=== PATIENT | female | born 1970 | race Caucasian/White ===

== ENCOUNTER → 2024-10-09 | Outpatient (CLI) | payer MEDICAID, SELFPAY ==
--- NOTE | 2024-10-09 14:30 | XR_ITS ---
Examination: Screening digital mammography, bilateral Computer aided detection 3-D breast Tomosynthesis, bilateral Date and time of exam: October 09, 2024 1406 hours Compared to mammograms dating to May 20, 2021 Indication: Screening Technique: Nonmagnified MLO, CC views of the breasts to been obtained, reconstructed from 3-D Tomosynthesis images. R2 computer aided detection program utilized for evaluation of suspicious masses and/or abnormal calcifications. 3-D Tomosynthesis images obtained. Findings: Scattered areas of fibroglandular density Benign calcifications. No interval suspicious masses Impression: BI-RADS category II: Benign Findings. Recommend 1 year follow-up mammogram.
== END | disposition home or self-care (01) ==
LOC: CDIM 13:55
PROVIDERS: Referring Provider Physician Assistant; Visit Provider Physician Assistant
DX: Z12.31 Encounter for screening mammogram for malignant neoplasm of breast (principal); R92.323 Mammographic fibroglandular density, bilateral breasts; R92.1 Mammographic calcification found on diagnostic imaging of breast
CPT/HCPCS: 77063; 77067

== ENCOUNTER 2025-02-09 00:34 | Emergency (ER) | payer MEDICAID, SELFPAY ==
[2025-02-09 00:40] VITALS: BP 128/71; PULSE 93; RESP 18; TEMP 36.4; O2SAT 96
[2025-02-09 01:43] VITALS: BP 120/63; PULSE 91; RESP 18; TEMP 36.8; O2SAT 98; BMI 41.1
--- NOTE | 2025-02-09 01:43 | PD.EDALLER ---
ED Allergic Reaction RME/HPI General Stated complaint: ALLERGIC REACTION Time Seen by Provider: 02/09/25 01:43 Arrival date/time: 02/09/25 00:34 Limitations: no limitations RME / HPI RME / HPI narrative: Dr. King's Main ED Evaluation: 54yo female [place]IN from home presents to the ED for a chief complaint of an allergic reaction. Patient states she ate some nachos tonight and has since had difficulty swallowing and feels like I'm going to pass out . She has had similar symptoms when eating sagar cheese in the past. Denies any chest pain, shortness of breath, or any other associated symptoms. NKA. Related Data Home Medications ?Medication ?Instructions ?Recorded ?Confirmed aspirin 81 mg tablet,delayed 81 mg PO QDAY 09/03/19 release (Adult Aspirin Regimen) atorvastatin 10 mg tablet 10 mg PO QHS 09/03/19 oxcarbazepine 300 mg tablet 300 mg PO BID 09/03/19 quetiapine 100 mg tablet (Seroquel) 100 mg PO QDAY 09/03/19 quetiapine 400 mg tablet (Seroquel) 400 mg PO QHS 09/03/19 venlafaxine 37.5 mg 37.5 mg PO QHS 09/03/19 capsule,extended release 24 hr Previous Rx's ?Medication ?Instructions ?Recorded acetaminophen 650 mg 650 mg PO Q8H PRN fever or pain 09/03/19 tablet,extended release #30 tabs ibuprofen 600 mg tablet 600 mg PO Q8H PRN fever or pain 09/03/19 #30 tabs ibuprofen 800 mg tablet 800 mg PO TID PRN pain #30 tabs 02/19/20 diphenhydramine HCl 25 mg capsule 25 mg PO TID PRN allergy symptoms 02/09/25 (Benadryl) 2 days #10 caps epinephrine 0.3 mg/0.3 mL 0.3 ml subcut .As needed #2 ea 02/09/25 injection, auto-injector (EpiPen) famotidine 20 mg tablet 20 mg PO BID 5 days #10 tabs 02/09/25 prednisone 50 mg tablet 50 mg PO QDAY 5 days #5 tabs 02/09/25 Allergies Allergy/AdvReac Type Severity Reaction Status Date / Time No Known Allergies Allergy Verified 02/19/20 12:36 Review of Systems Review of Systems Systems Reviewed: All systems reviewed, normal except as documented Past Medical History Social History SMOKING STATUS: Never smoker ED Exam General Limitations: Present no limitations General appearance: Present alert and in no apparent distress Head Head exam: Present atraumatic Eye Eye exam: Present normal appearance, PERRL and EOMI ENT ENT exam: Present normal exam, normal oropharynx and mucous membranes moist Neck Neck exam: Present normal inspection, full ROM and trachea midline Chest Chest inspection: Present normal inspection and symmetric chest wall rise Respiratory Respiratory exam: Present normal lung sounds bilaterally Cardiovascular Cardiovascular exam: Present regular rate, normal rhythm and normal heart sounds Abdominal Exam Abdominal exam: Present soft and normal bowel sounds Extremities Exam Extremities exam: Present normal inspection and full ROM Back Exam Back exam: Present normal inspection and full ROM Neurological Exam Neurological exam: Present alert, oriented X3 and CN II-XII intact Psychiatric Psychiatric exam: Present normal affect and normal mood Skin Skin exam: Present warm, dry, intact and normal color Course Quality Measures none Orders Category Date Time Status DiphenhydrAMINE INJ [Benadryl Inj] Med 02/09/25 01:44 Discontinued 25 mg IVP X1 ONE Famotidine Inj [Pepcid Inj] Med 02/09/25 01:43 Discontinued 20 mg IVP X1 ONE MethylPREDNISolone.* [SoluMEDROL Inj] Med 02/09/25 01:43 Discontinued 125 mg IVP X1 ONE Vital Signs Vital signs: Vital Signs Temperature 97.6 F 02/09/25 00:40 Pulse Rate 93 02/09/25 00:40 Respiratory Rate 18 02/09/25 00:40 Blood Pressure 128/71 02/09/25 00:40 Pulse Oximetry (%) 96 02/09/25 00:40 Oxygen Delivery Method Nasal Cannula 02/09/25 00:40 Oxygen Flow Rate 6 02/09/25 00:40 Allergic Reaction MDM Narrative MDM Narrative:: Scribe Attestation: 02/09/25 Juanita Spann am scribing for and in the presence of Dr. King. This 54-year-old female presents emergency department with history of high cholesterol, and otherwise not on an NIMESH inhibitor coming in with difficulty swallowing after eating cheese at the [facility] [place]. She states this has happened 1 other time when she has had natural cheese. On physical exam the patient is hemodynamically stable with no airway or hemodynamic compromise. She is 98% on room air. Patient is treated with allergic reaction medications. On reevaluation the patient has resolution of her symptoms. Return precautions given understood the patient needs to follow-up with a primary care so she can get referral to insurance claims analyst if needed. If needed. Patient data External records reviewed:: [facility] previous records (Per chart review, patient has no relevant previous ED visits.) and EMS form Clinical information provided by:: patient Social determinants that could affect healthcare access:: none Patient has the following chronic illnesses:: none How is presenting disease/condition affected by chronic disease/condition?: no chronic disease Evaluation data The following diagnostics were reviewed and interpreted by me:: other (specify) (none) Lab and/or radiology exams considered but not ordered:: none Interpretation Summary: none Medications / Prescriptions Medications or Prescriptions considered but not ordered:: none Medication administrations:: Medication Administration History Discontinued Medications Diphenhydramine HCl (Diphenhydramine Inj 50 Mg/Ml Vial) 25 mg IVP X1 ONE Stop: 02/09/25 01:45 Last Admin: 02/09/25 03:34 Dose: 25 mg Documented By: SE Famotidine (Famotidine Inj 10 Mg/Ml Vial 2 Ml) 20 mg IVP X1 ONE Stop: 02/09/25 01:44 Last Admin: 02/09/25 03:30 Dose: 20 mg Documented By: SE Methylprednisolone Sodium Succinate (Methylprednisolone Sod Succ 62.5 Mg/Ml 2ml Vial) 125 mg IVP X1 ONE Stop: 02/09/25 01:44 Last Admin: 02/09/25 03:27 Dose: 125 mg Documented By: SE see above Consultations Consultation(s) initiated? (list below): No Diagnosis Differential Diagnosis allergic reaction: anaphylaxis, allergic reaction and angioedema Most likely diagnosis given after review of the tests above:: see clinical impression below Admission Indicated Admission indicated?: not indicated Admission Request Was there a request for admission?: No Disposition Plan Disposition Plan: Discharge Discharge Attestation Discharge Attestation: The patient and all family members were given an opportunity to ask questions and understood the discharge instructions. Discharge instructions specifically effects, indications for sooner follow up or return to the emergency department, and the expected course of current diagnosis. Patient condition: Stable Discharge Plan Plan Patient Disposition: HOME (Self Care) Patient condition on transfer: Stable Prescriptions/Referrals Prescriptions/Med Rec: New prednisone 50 mg tablet 50 mg PO QDAY 5 Days Qty: 5 0RF diphenhydramine HCl [Benadryl] 25 mg capsule 25 mg PO TID PRN (Reason: allergy symptoms) 2 Days Qty: 10 0RF famotidine 20 mg tablet 20 mg PO BID 5 Days Qty: 10 0RF epinephrine [EpiPen] 0.3 mg/0.3 mL auto-injector 0.3 ml subcut .As needed Qty: 2 0RF No Action venlafaxine 37.5 mg capsule,extended release 24hr 37.5 mg PO QHS atorvastatin 10 mg tablet 10 mg PO QHS oxcarbazepine 300 mg tablet 300 mg PO BID aspirin [Adult Aspirin Regimen] 81 mg tablet,delayed release (DR/EC) 81 mg PO QDAY quetiapine [Seroquel] 100 mg tablet 100 mg PO QDAY quetiapine [Seroquel] 400 mg tablet 400 mg PO QHS acetaminophen 650 mg tablet extended release 650 mg PO Q8H PRN (Reason: fever or pain) Qty: 30 0RF Rx Instructions: swallow whole; do not crush, chew, break, dissolve, cut, or open ibuprofen 600 mg tablet 600 mg PO Q8H PRN (Reason: fever or pain) Qty: 30 0RF Rx Instructions: prn pain / fever ibuprofen 800 mg tablet 800 mg PO TID PRN (Reason: pain) Qty: 30 0RF Problem List Clinical Impression: Allergic reaction Patient/Caregiver Discharge Instructions Additional Instructions: Take medication as prescribed. Do not eat any more sagar cheese. Follow-up with your primary care in the next 72 hours. Return to the ED for any worsening symptoms or as needed. Print Language: Tristanian Stand Alone Forms: Susanne Award Info., Patient Portal Info Letter
[2025-02-09 01:45] VITALS: BMI 41.1
[2025-02-09] MEDS: MethylPREDNISolone SOD SUCC 62.5 MG/ML 2ML VIAL 125 MG IVP (03:27)
[2025-02-09] MEDS: FAMOTIDINE INJ 10 MG/ML VIAL 2 ML 20 MG IVP (03:30)
[2025-02-09 05:29] VITALS: BP 119/86; PULSE 80; RESP 18; O2SAT 95
== END 2025-02-09 05:35 | disposition home or self-care (01) ==
LOC: SERX 03:04
PROVIDERS: Emergency Provider Emergency Medicine; PCP Family Medicine
DX: T78.1XXA Other adverse food reactions, not elsewhere classified, initial encounter (principal); R13.10 Dysphagia, unspecified
CPT/HCPCS: 96374; 96375; 99283; J1200; J2919; J3490

== ENCOUNTER 2025-02-10 22:34 | Emergency (ER) | payer MEDICAID, SELFPAY ==
[2025-02-10 22:35] VITALS: BMI 40.8
[2025-02-10 22:52] VITALS: BP 138/67; PULSE 95; RESP 17; TEMP 36.6; O2SAT 96
--- NOTE | 2025-02-10 23:01 | PD.EDSOB ---
ED SOB =RME/HPI General Chief Complaint: Shortness of Breath/Dyspnea Stated Complaint: THROUBLE BREATHING, HISTORY OF ASTHMA Time Seen by Provider: 02/10/25 23:06 Arrival date/time: 02/10/25 22:34 RME / HPI RME / HPI Narrative: This section includes all my notes and documentations, including HPI, PE, and ED course. Reid Callaway MD HPI: 54yo female with a history of asthma here with several days of worsening cough, productive cough, purulent sputum, and dyspnea. Worse after smoking elation drink barbecue earlier that afternoon. No other complaints. ROS: All negative except as documented in HPI. Physical Exam: General: Alert and oriented. No acute distress when remaining still. Eyes: Conjunctivae and lids clear. ENT: No nasal congestion. Neck: Supple. Heart: RRR. Lungs: No respiratory distress. Mildly decreased air movement with wheezing. Abdomen: Soft and nontender. Skin: Warm and dry. Neuro: Alert and oriented X 3. I reviewed all diagnostic test results. My interpretation of the chest x-ray is increased bronchial markings. At this point, diagnoses include lower respiratory infection. Treatment here included Duoneb, Prednisone, Benadryl, and Azithromycin. Significant improvement noted. Based on my best medical judgment, made decision no further evaluation or treatment indicated at this time. Patient understands and agrees to the discharge instructions customized and printed, see below. Discharge instructions from Dr. Callaway: --No physical exertion for 3 days to help rest the lungs. ?No smoking or exposure to smoking or pets or dust or humidity. --Zithromax to kill the germs causing the bronchitis. --Prednisone to help decrease the swelling in the airways. --Albuterol 2 puffs every 4-6 hours for 24 hours to help keep the airways open. Then as needed for cough or shortness of breath. --See a private doctor on 02/15/2025 if not completely better. --Seek immediate medical care with worsening or with any concerns. Reid Callaway MD Related Data Home Medications ?Medication ?Instructions ?Recorded ?Confirmed aspirin 81 mg tablet,delayed 81 mg PO QDAY 09/03/19 release (Adult Aspirin Regimen) atorvastatin 10 mg tablet 10 mg PO QHS 09/03/19 oxcarbazepine 300 mg tablet 300 mg PO BID 09/03/19 quetiapine 100 mg tablet (Seroquel) 100 mg PO QDAY 09/03/19 quetiapine 400 mg tablet (Seroquel) 400 mg PO QHS 09/03/19 venlafaxine 37.5 mg 37.5 mg PO QHS 09/03/19 capsule,extended release 24 hr Previous Rx's ?Medication ?Instructions ?Recorded acetaminophen 650 mg 650 mg PO Q8H PRN fever or pain 09/03/19 tablet,extended release #30 tabs ibuprofen 600 mg tablet 600 mg PO Q8H PRN fever or pain 09/03/19 #30 tabs ibuprofen 800 mg tablet 800 mg PO TID PRN pain #30 tabs 02/19/20 diphenhydramine HCl 25 mg capsule 25 mg PO TID PRN allergy symptoms 02/09/25 (Benadryl) 2 days #10 caps epinephrine 0.3 mg/0.3 mL 0.3 ml subcut .As needed #2 ea 02/09/25 injection, auto-injector (EpiPen) famotidine 20 mg tablet 20 mg PO BID 5 days #10 tabs 02/09/25 prednisone 50 mg tablet 50 mg PO QDAY 5 days #5 tabs 02/09/25 albuterol sulfate 90 mcg/actuation 2 puff inhalation Q6H PRN 02/11/25 aerosol inhaler shortness of breath or wheezing #8.5 grams azithromycin 500 mg tablet 500 mg PO QDAY 3 days #3 tabs 02/11/25 (Zithromax TRI-PAT) prednisone 50 mg tablet 50 mg PO QDAY #3 tabs 02/11/25 Allergies Allergy/AdvReac Type Severity Reaction Status Date / Time No Known Allergies Allergy Verified 02/10/25 22:35 Review of Systems Review of Systems Systems Reviewed: All systems reviewed, normal except as documented Past Medical History Past Medical History CARDIAC: Negative Congestive Heart Failure RESPIRATORY: Negative Chronic Obstructive Pulmonary Disease (COPD) GENITOURINARY: Negative Renal Disease ENDOCRINE: Negative Diabetes Mellitus Type 1 or Diabetes Mellitus Type 2 Social History SMOKING STATUS: Never smoker ED Exam Narrative Physical exam: As noted in HPI. Course Quality Measures none Orders Category Date Time Status XR chest 1V portable Stat Exams 02/10/25 23:06 Completed Albuterol/Ipratr Rt Malou [Duoneb Rt Malou] Med 02/10/25 23:06 Discontinued 3 ml INH X1 ONE Azithromycin Po [Zithromax PO] Med 02/11/25 00:17 Discontinued 500 mg PO X1 ONE DiphenhydrAMINE INJ [Benadryl Inj] Med 02/10/25 23:06 Discontinued 50 mg IM X1 STA predniSONE Med 02/10/25 23:06 Discontinued 60 mg PO X1 ONE Vital Signs Vital signs: Vital Signs Temperature 98 F 02/10/25 22:52 Pulse Rate 95 02/10/25 22:52 Respiratory Rate 17 02/10/25 22:52 Blood Pressure 138/67 H 02/10/25 22:52 Pulse Oximetry (%) 96 02/10/25 22:52 Oxygen Delivery Method Room Air 02/10/25 22:52 Shortness of Breath / Dyspnea MDM Narrative MDM Narrative:: 54yo female with a history of asthma here with shortness of breath. Patient was barbequing tonight and breathed in some smoke, causing her to be short of breath. No fevers. No other complaints reported. Patient data External records reviewed:: [facility] previous records (Per chart review, patient was seen here on 02/09/25 for an allergic reaction.) Clinical information provided by:: patient Social determinants that could affect healthcare access:: none Patient has the following chronic illnesses:: asthma How is presenting disease/condition affected by chronic disease/condition?: exacerbated by Evaluation data The following diagnostics were reviewed and interpreted by me:: radiology exam(s) Lab and/or radiology exams considered but not ordered:: none Interpretation Summary: I reviewed all diagnostic test results. My interpretation of the chest x-ray is increased bronchial markings. Medications / Prescriptions Medications or Prescriptions considered but not ordered:: none Medication administrations:: Medication Administration History Discontinued Medications Albuterol/Ipratropium (Albuterol/Ipratropium (Duoneb) Rt Malou 3 Ml Nebu) 3 ml INH X1 ONE Stop: 02/10/25 23:07 Last Admin: 02/11/25 00:06 Dose: 3 ml Documented By: SOL Azithromycin (Azithromycin 250 Mg Tablet) 500 mg PO X1 ONE Stop: 02/11/25 00:18 Last Admin: 02/11/25 00:25 Dose: 500 mg Documented By: [place] Diphenhydramine HCl (Diphenhydramine Inj 50 Mg/Ml Vial) 50 mg IM X1 STA Stop: 02/10/25 23:07 Last Admin: 02/10/25 23:35 Dose: 50 mg Documented By: EF Prednisone (Prednisone 20 Mg Tablet) 60 mg PO X1 ONE Stop: 02/10/25 23:07 Last Admin: 02/10/25 23:35 Dose: 60 mg Documented By: EF Duoneb, Prednisone, Benadryl, Azithromycin Consultations Consultation(s) initiated? (list below): No Diagnosis Shortness of Breath Differential Diagnosis: acute exacerbation of chronic obstructive airways disease, congestive heart failure, community acquired pneumonia, asthma with exacerbation, pulmonary embolism and other (URI) Most likely diagnosis given after review of the tests above:: Lower respiratory infection Admission Indicated Admission indicated?: not indicated Explain why admission is indicated or not indicated:: With significant improvement and no condition needing emergent intervention, there was no indication for admission. Admission Request Was there a request for admission?: No Disposition Plan Disposition Plan: Discharge Discharge Attestation Discharge Attestation: The patient and all family members were given an opportunity to ask questions and understood the discharge instructions. Discharge instructions specifically effects, indications for sooner follow up or return to the emergency department, and the expected course of current diagnosis. Patient condition: Stable Discharge Plan Plan Patient Disposition: HOME (Self Care) Prescriptions/Referrals Prescriptions/Med Rec: New prednisone 50 mg tablet 50 mg PO QDAY Qty: 3 0RF albuterol sulfate 90 mcg/actuation HFA aerosol inhaler 2 puff inhalation Q6H PRN (Reason: shortness of breath or wheezing) Qty: 8.5 0RF azithromycin [Zithromax TRI-PAT] 500 mg tablet 500 mg PO QDAY 3 Days Qty: 3 0RF No Action venlafaxine 37.5 mg capsule,extended release 24hr 37.5 mg PO QHS atorvastatin 10 mg tablet 10 mg PO QHS oxcarbazepine 300 mg tablet 300 mg PO BID aspirin [Adult Aspirin Regimen] 81 mg tablet,delayed release (DR/EC) 81 mg PO QDAY quetiapine [Seroquel] 100 mg tablet 100 mg PO QDAY quetiapine [Seroquel] 400 mg tablet 400 mg PO QHS acetaminophen 650 mg tablet extended release 650 mg PO Q8H PRN (Reason: fever or pain) Qty: 30 0RF Rx Instructions: swallow whole; do not crush, chew, break, dissolve, cut, or open ibuprofen 600 mg tablet 600 mg PO Q8H PRN (Reason: fever or pain) Qty: 30 0RF Rx Instructions: prn pain / fever ibuprofen 800 mg tablet 800 mg PO TID PRN (Reason: pain) Qty: 30 0RF prednisone 50 mg tablet 50 mg PO QDAY 5 Days Qty: 5 0RF diphenhydramine HCl [Benadryl] 25 mg capsule 25 mg PO TID PRN (Reason: allergy symptoms) 2 Days Qty: 10 0RF famotidine 20 mg tablet 20 mg PO BID 5 Days Qty: 10 0RF epinephrine [EpiPen] 0.3 mg/0.3 mL auto-injector 0.3 ml subcut .As needed Qty: 2 0RF Referrals: Aron Lemus MD [Primary Care Provider] - In 1 week Problem List Clinical Impression: Lower respiratory infection Patient/Caregiver Discharge Instructions Discharge Activity: activity as tolerated Education Materials: ED Bronchitis, Antibiotics (Child) Additional Instructions: Discharge instructions from Dr. Callaway: --No physical exertion for 3 days to help rest the lungs. ?No smoking or exposure to smoking or pets or dust or humidity. --Zithromax to kill the germs causing the bronchitis. --Prednisone to help decrease the swelling in the airways. --Albuterol 2 puffs every 4-6 hours for 24 hours to help keep the airways open. Then as needed for cough or shortness of breath. --See a private doctor on 02/15/2025 if not completely better. --Seek immediate medical care with worsening or with any concerns. Print Language: Luxembourger Stand Alone Forms: Susanne Award Info., Patient Portal Info Letter
--- NOTE | 2025-02-10 23:06 | XR_ITS ---
Examination: PA chest single view Technique upright PA chest single view Date and time: February 10, 2025 11:24 PM, comparison October 26, 2023 INDICATIONS: Asthma history with shortness of breath today. FINDINGS: Normal heart size Mild accentuation of basilar bronchovascular markings No lobar pneumonia The osseous structures are intact IMPRESSION: Mild basilar bronchitis pattern
[2025-02-11] MEDS: ALBUTEROL/IPRATROPIUM (Duoneb) RT SOL 3 ML NEBU INH (00:06)
[2025-02-11 00:10] VITALS: PULSE 95; RESP 18; O2SAT 96
[2025-02-11] MEDS: AZITHROMYCIN 250 MG TABLET 500 MG PO (00:25)
--- NOTE | 2025-02-11 01:07 | PC.NURSE ---
PATIENT CALLING FOR RIDE, WAITING FOR RIDE.
[2025-02-11 01:24] VITALS: BP 143/100; PULSE 91; RESP 18; TEMP 36.9; O2SAT 95
== END 2025-02-11 01:22 | disposition home or self-care (01) ==
PROVIDERS: Emergency Provider Emergency Medicine; PCP Family Medicine
DX: J22 Unspecified acute lower respiratory infection (principal); J45.909 Unspecified asthma, uncomplicated
CPT/HCPCS: 71045; 94640; 96372; 99283; A9270; J1200; J7512